=== PATIENT | female | born 1955 | race African-American/Black ===

== ENCOUNTER → 2017-08-09 | Day surgery (SDC) | payer OTHER ==
--- NOTE | 2017-08-10 14:35 | PATH ---
Cytology Non-Gynecological Report Patient Name: ARASH OCONNOR [facility] Rec. #: [id number] /Age/Gender: 1955 (Age: 61) / F Account: [id number] Location: RADIOLOGY Taken: 08/09/2017 Received: 08/09/2017 Reported: 08/10/2017 Physicians: Fer Proctor M.D. Specimen(s) Received THYROID FNA Clinical History Left nodule, 1.71 x 1.61 x 1.35 cm Final Diagnosis THYROID, LEFT, FINE NEEDLE ASPIRATION: SATISFACTORY FOR EVALUATION. BETHESDA CLASS II: BENIGN. CYTOLOGIC FINDINGS ARE CONSISTENT WITH A BENIGN FOLLICULAR NODULE. BENIGN FOLLICULAR CELLS, ABUNDANT COLLOID, SCATTERED LYMPHOCYTES, RARE MULTINUCLEATED GIANT CELLS, AND FEW LYMPHOID TANGLES PRESENT. Comment: Suggest clinical/radiologic correlation. Prior atypical diagnosis/cytology material is noted. Electronically Signed Ludy Barron M.D. Gross Description Received are eight direct smears, four of which are air-dried and Diff-Quik stained, and four of which are alcohol fixed and Pap stained. Also received is 20 ml of bloody formalin from which one cellblock is prepared.
== END | disposition home or self-care (01) ==
LOC: JRADIR 09:18
PROVIDERS: ATTEND Specialist
PROC: 0G923ZX Drainage of Left Adrenal Gland, Percutaneous Approach, Diagnostic (ICD-10-PCS; principal; 2017-08-09)
PROC: [UNRECOGNIZED PROCEDURE] (2017-08-09)
DX: E04.1 Nontoxic single thyroid nodule (principal)
CPT/HCPCS: 76942; 88173; 88305-TC

== ENCOUNTER → 2017-08-23 | Day surgery (SDC) | payer OTHER ==
--- NOTE | 2017-08-24 17:52 | PATH ---
Cytology Non-Gynecological Report Patient Name: ARASH OCONNOR [facility] Rec. #: [id number] /Age/Gender: 1955 (Age: 61) / F Account: [id number] Location: RADIOLOGY Taken: 08/23/2017 Received: 08/23/2017 Reported: 08/24/2017 Physicians: Fer Proctor M.D. Specimen(s) Received RIGHT THYROID FNA Clinical History Right thyroid nodule, 1.15 x 0.61 x 0.96 cm Final Diagnosis THYROID, RIGHT, FINE NEEDLE ASPIRATION: UNSATISFACTORY FOR EVALUATION. BETHESDA CLASS I: NON-DIAGNOSTIC. FEW MACROPHAGES AND RARE LYMPHOCYTES IN A BACKGROUND OF BLOOD, SCANT PERIPHERAL BLOOD ELEMENTS AND DEBRIS. NO DEFINITIVE FOLLICULAR CELLS OR SIGNIFICANT COLLOID IDENTIFIED. Electronically Signed Ludy Barron M.D. Gross Description Received are eight direct smears, four of which are air-dried and Diff-Quik stained, and four of which are alcohol fixed and Pap stained. Also received is 20 ml of bloody formalin from which one cellblock is prepared.
== END | disposition home or self-care (01) ==
LOC: JRADIR 09:55
PROVIDERS: ATTEND Specialist
PROC: 0G9H3ZX Drainage of Right Thyroid Gland Lobe, Percutaneous Approach, Diagnostic (ICD-10-PCS; principal; 2017-08-23)
DX: E04.1 Nontoxic single thyroid nodule (principal)
CPT/HCPCS: 76942; 88173; 88305-TC

== ENCOUNTER → 2024-05-06 | Day surgery (SDC) | payer BC | END | disposition home or self-care (01) | LOC: JRADIR 08:54 | PROVIDERS: ATTEND Surgery | PROC: 0G9G3ZX Drainage of Left Thyroid Gland Lobe, Percutaneous Approach, Diagnostic (ICD-10-PCS; principal; 2024-05-06) | DX: E04.1 Nontoxic single thyroid nodule (principal) | CPT/HCPCS: 10005; 76942; 88173; 88305-TC ==